=== PATIENT | female | born 1985 | race American Indian/Alaskan Native ===

== ENCOUNTER 2019-04-22 09:46 | Emergency (ER) | payer SELFPAY ==
[2019-04-22 11:13] LABS: Basophils % (Auto) 0.6 % (0.0-1.8); Eosinophils % (Auto) 0.5 % (0.0-4.3); Hematocrit 37.1 % (30.3-42.9); Hemoglobin 12.4 gm/dl (10.1-14.3); Lymphocytes # (Auto) 1.6 K/mm3 (1.2-5.4); Lymphocytes % (Auto) 31.6 % (13.4-35.0); Mean Corpuscular HGB Conc 33 % (30-34); Mean Corpuscular Volume 80 fl (79-97); Monocytes # (Auto) 0.4 K/mm3 (0.0-0.8); Monocytes % (Auto) 8.5 % (0.0-7.3); Platelet Count 292 K/mm3 (140-440); Red Blood Count 4.63 M/mm3 (3.65-5.03); Red Cell Distribution Width 14.1 % (13.2-15.2)
--- NOTE | 2019-04-22 11:17 | Emergency Department Report ---
ED Back Pain/Injury HPI - General Chief Complaint: Back Pain/Injury Stated Complaint: BACK PAIN/VOMITING Time Seen by Provider: 04/22/19 10:24 Source: patient Limitations: No Limitations - History of Present Illness Initial Comments: 33-year-old female presents to ED with left-sided back pain. Patient states she was walking and then began to feel what she describes as a charley horse in her back. Patient states the pain became worse area denies any difficulty walking or weakness in her legs. Patient states she then vomited, afterward, her pain seemed to begin to improve. Patient states this episode lasted for approximately 10 minutes. She reports mild radiation of pain to the left lower quadrant. Patient is unsure of hematuria, because she states she is currently on her menstrual period. She denies any fever or chills. No history of kidney stones in the past. Patient reports 2 weeks ago she had a uterine polypectomy. She reports mild dysuria, denies any urinary frequency. MD Complaint: back pain -: This morning Similar Symptoms Previously: No Radiation: abdomen Severity: moderate Quality: other ("like a charley horse") Consistency: now resolved Improves With: none Worsens With: none Context: other (while walking) Associated Symptoms: abdominal pain, nausea/vomiting. denies: numbness, difficulty walking, difficulty urinating, incontinence, fever/chills - Related Data Previous Rx's Medication Instructions Recorded Last Taken Type HYDROcodone/APAP 5-325 [Tabor 1 each PO Q6HR PRN #7 tablet 04/22/19 Unknown Rx 5/325] Naproxen [Naprosyn] 500 mg PO BID #20 tablet 04/22/19 Unknown Rx Ondansetron [Zofran Odt] 4 mg PO Q8HR PRN #20 tab.rapdis 04/22/19 Unknown Rx Allergies Allergy/AdvReac Type Severity Reaction Status Date / Time No Known Allergies Allergy Unverified 04/22/19 11:17 ED Review of Systems ROS: Stated complaint: BACK PAIN/VOMITING Other details as noted in HPI Comment: All other systems reviewed and negative Constitutional: denies: chills, fever Gastrointestinal: abdominal pain, nausea, vomiting Genitourinary: dysuria. denies: frequency, hematuria Musculoskeletal: back pain Neurological: denies: weakness, numbness, paresthesias ED Past Medical Hx - Past Medical History Previous Medical History?: No - Surgical History Past Surgical History?: Yes Additional Surgical History: Uterine Polypectomy on 04/09/19 - Social History Smoking Status: Never Smoker Substance Use Type: None - Medications Home Medications: Home Medications Medication Instructions Recorded Confirmed Last Taken Type HYDROcodone/APAP 5-325 [Tabor 1 each PO Q6HR PRN #7 tablet 04/22/19 Unknown Rx 5/325] Naproxen [Naprosyn] 500 mg PO BID #20 tablet 04/22/19 Unknown Rx Ondansetron [Zofran Odt] 4 mg PO Q8HR PRN #20 tab.rapdis 04/22/19 Unknown Rx ED Physical Exam - General Limitations: No Limitations General appearance: alert, in no apparent distress - Head Head exam: Present: atraumatic, normocephalic - Eye Eye exam: Present: normal appearance, EOMI - ENT ENT exam: Present: mucous membranes moist - Neck Neck exam: Present: normal inspection - Respiratory Respiratory exam: Present: normal lung sounds bilaterally. Absent: respiratory distress - Cardiovascular Cardiovascular Exam: Present: regular rate, normal rhythm - GI/Abdominal GI/Abdominal exam: Present: soft, tenderness (mild LLQ tenderness). Absent: distended - Extremities Exam Extremities exam: Present: normal inspection - Back Exam Back exam: Absent: CVA tenderness (R), CVA tenderness (L) - Neurological Exam Neurological exam: Present: alert, oriented X3 - Psychiatric Psychiatric exam: Present: normal affect, normal mood - Skin Skin exam: Present: warm, dry, intact, normal color ED Course Vital Signs 04/22/19 04/22/19 09:51 13:55 Temperature 97.8 F 97.9 F Pulse Rate 71 78 Respiratory 16 16 Rate Blood Pressure 118/82 Blood Pressure 120/78 [Right] O2 Sat by Pulse 100 98 Oximetry ED Medical Decision Making - Lab Data Result diagrams: 04/22/19 11:00 04/22/19 11:00 - Radiology Data Radiology results: report reviewed, image reviewed - Medical Decision Making 33-year-old female with left flank pain. CT shows 4 mm left ureteral stone. There is also evidence of a left ovarian cyst, no free fluid in the pelvis present. Pain today is likely related to the kidney stone not ovarian cyst. Patient is afebrile, no bacteriuria present. Pain has resolved here in the ED, however will prescribe pain medication in case pain returns. Follow-up information given for urologist. Return precautions given. - Differential Diagnosis kidney stone, diverticulitis, ectopic preg Critical care attestation.: If time is entered above; I have spent that time in minutes in the direct care of this critically ill patient, excluding procedure time. ED Disposition Clinical Impression: Kidney stone on left side, Acute abdominal pain in left flank, Left ovarian cyst Disposition: TO HOME OR SELFCARE Is pt being admited?: No Condition: Stable Instructions: Ovarian Cyst (ED), Kidney Stones (ED) Prescriptions: Naproxen [Naprosyn] 500 mg PO BID #20 tablet HYDROcodone/APAP 5-325 [Tabor 5/325] 1 each PO Q6HR PRN #7 tablet PRN Reason: Pain Ondansetron [Zofran Odt] 4 mg PO Q8HR PRN #20 tab.rapdis PRN Reason: Vomiting Referrals: PRIMARY CARE, [Primary Care Provider] - 3-5 Days ALLYSON LEONARDO MD [Staff Physician] - 3-5 Days Time of Disposition: 13:12
[2019-04-22 11:29] LABS: BUN/Creatinine Ratio 22; Blood Urea Nitrogen 11 mg/dL (7-17); Calcium 8.9 mg/dL (8.4-10.2); Hemolysis Index 25
[2019-04-22 11:48] LABS: Mucus,Urine FEW /HPF
[2019-04-22 11:49] LABS: Bilirubin,Urine NEG (Negative); Blood,Urine LG (Negative); Color,Urine Yellow (Yellow); Protein,Urine <15 mg/dL mg/dL (Negative)
[2019-04-22 11:51] LABS: HCG Qualitative,Urine Negative (Negative)
--- NOTE | 2019-04-22 12:56 | Cat Scan Report ---
CT ABDOMEN AND PELVIS WITHOUT CONTRAST HISTORY: L flank pain. COMPARISON: None. TECHNIQUE: CT images of the abdomen and pelvis were obtained without administration of intravenous co ntrast. All CT scans at this location are performed using CT dose reduction for ALARA by means of au tomated exposure control. FINDINGS: Lungs/bones: Lung bases are clear. There is no acute osseous abnormality. Abdomen/pelvis: The liver, gallbladder, spleen, pancreas, adrenals, kidneys, and proximal GI tract a ppear unremarkable for noncontrast technique. There are pelvic phleboliths and there is also a 4 mm stone near the course of the distal left ureter but there is no hydronephrosis. The urinary bladder is unremarkable. Reproductive organs are unremar kable with small ovarian follicles and a mildly complex left ovarian cyst measuring 1.7 cm on image # 134 of series #2. No pelvic free fluid or acute colonic abnormality identified. IMPRESSION: 1. Stone near the course of the distal left ureter as described above, but no hydronephrosis. This ma y also represent a phlebolith. 2. Mildly complex left ovarian cyst. Signer Name: Marco A Reynolds MD Signed: 04/22/2019 12:52 PM Workstation Name: [id number]
[2019-04-22 13:57] VITALS: BP 120/78
== END 2019-04-22 13:58 | disposition home or self-care (01) ==
LOC: ED 09:46
DX: N83.202 Unspecified ovarian cyst, left side (principal); N20.0 Calculus of kidney
CPT/HCPCS: 36415; 74176; 80048; 81001; 81025; 85025; 87086